=== PATIENT | female | born 1985 | race Caucasian/White ===

== ENCOUNTER 2017-04-15 11:16 | Emergency (ER) | payer BC, OTHER ==
[~2017-04-15] VITALS: Ht 165.1 cm; Wt 56.3 kg
[2017-04-15] MEDS ORDERED: SODIUM CHLORIDE 0.9% 1,000 ML IV ONE (11:47)
[2017-04-15] MEDS ORDERED: SODIUM CHLORIDE FLUSH 10ML SYR IVF ONE (12:00)
[2017-04-15] MEDS ORDERED: SODIUM CHLORIDE 0.9% 1,000ML IVBOLUS ONE (12:00)
[2017-04-15] MEDS ORDERED: CEFTRIAXONE PMX 1GM/50ML 50 ML ONE (13:39)
[2017-04-15] MEDS ORDERED: CEFTRIAXONE PMX 1GM/50ML 50 ML IV ONE (14:00)
[2017-04-15 14:06] LABS: BLOOD UREA NITROGEN 7 mg/dL (7-18)
[2017-04-15 14:07] LABS: HEMATOCRIT 39.4 % (34.6-47.8); HEMOGLOBIN 13.1 g/dL (11.7-16.4); WHITE BLOOD COUNT 7.9 x10^3/uL (3.4-10)
[2017-04-15 14:10] LABS: ASPARTATE AMINO TRANSFERASE 14 U/L (15-37)
[2017-04-15 14:43] VITALS: BP 130/90
== END 2017-04-15 15:53 | disposition home or self-care (01) ==
LOC: ED 12:57
DX: N30.90 Cystitis, unspecified without hematuria (principal); E10.65 Type 1 diabetes mellitus with hyperglycemia; Z79.4 Long term (current) use of insulin
CPT/HCPCS: 36415; 80053; 81001; 82010; 82800; 83036; 84703; 85025; 87077; 87086; 87186; 96361; 96365; 96366; 99285; J0696; J7030